=== PATIENT | female | born 1990 | race Two or more races ===

== ENCOUNTER 2020-12-09 00:28 | Outpatient (CLI) | payer OTHER | END 2020-12-09 00:30 | disposition home or self-care (01) | LOC: PPH VACUNA 00:28 | DX: Z23 Encounter for immunization (principal) ==

== ENCOUNTER 2020-12-30 08:00 | Outpatient (CLI) | payer OTHER | END 2020-12-30 08:30 | disposition home or self-care (01) | LOC: PPH VACUNA 08:00 | DX: Z23 Encounter for immunization (principal) ==

== ENCOUNTER 2021-08-24 15:45 | Outpatient (CLI) | payer OTHER | END 2021-08-24 15:55 | disposition home or self-care (01) | LOC: PPH VACUNA 15:45 | PROVIDERS: ATTEND Emergency Medicine Pediatric Emergency Medicine | DX: Z23 Encounter for immunization (principal) ==